=== PATIENT | female | born 1995 | race Caucasian/White ===

== ENCOUNTER 2016-08-04 16:57 | Emergency (ER) | payer MEDICAID, OTHER ==
[~2016-08-04] VITALS: Ht 162.6 cm; Wt 72.5 kg
[2016-08-04 17:00] VITALS: Ht 162.6 cm; Wt 72.5 kg
[2016-08-04] MEDS ORDERED: ACET325T33 PO (17:18)
--- NOTE | 2016-08-04 17:18 | ERD ---
ER Documentation Chief Complaint Date/Time DATE: 08/04/16 TIME: 17:13 Chief Complaint HEADACHE,DIZZINESS,FEVER,SORE THROAT X 3DAYS HPI This pleasant 20-year-old female presents to emergency department today with 4 day history of headache, cough, nasal congestion, intermittent dizziness, sore throat and fever. Patient has not tried any [id number] medication for symptomatic relief, states that she might be . Patient denies any previous , para 0, 0. She is in room with her boyfriend. She denies dysuria, vaginal discharge, fever, shortness of breath, nausea, or vomiting. ROS All systems reviewed and are negative except as per history of present illness. Medications Home Meds Active Scripts Acetaminophen* (Tylenol*) 325 Mg Tablet, 2 TAB PO Q6 Y for PAIN AND OR ELEVATED TEMP, #20 TAB Prov:KANIKA,SHANNAN 08/04/16 Allergies Allergies: Coded Allergies: No Known Allergy (Unverified , 08/04/16) PMhx/Soc Medical and Surgical Hx: pt denies Medical Hx, pt denies Surgical Hx Hx Alcohol Use: No Hx Substance Use: No Hx Tobacco Use: No Smoking Status: Never smoker Physical Exam Vitals Vital Signs Date Time Temp Pulse Resp B/P Pulse Ox O2 Delivery O2 Flow Rate FiO2 08/04/16 17:00 99.4 84 18 125/69 98 Vitals stable, triage notes reviewed Physical Exam Const: No acute distress Head: Atraumatic Eyes: Normal Conjunctiva, PERRLA, EOMI ENT: Tympanic membranes bilaterally translucent, positive light reflex auditory canals are clear, nasal mucosa edematous right turbinates 3+ touching. Mucus noted. No maxillary sinus or frontal sinus tenderness. Pharynx is pink , injected, tongue is midline, tonsils not visualized, uvula rises and falls with pronation Neck: Full range of motion..~ No meningismus. No cervical chain nodes palpable Resp: Chest rises and falls symmetrically, clear to auscultation bilaterally, no rales wheezes or rhonchi Cardio: Regular rate and rhythm, no murmurs Abd: Soft, non tender, non distended. Normal bowel sounds Skin: No petechiae or rashes Back: Ext: Neur: Awake and alert Psych: Normal Mood and Affect Results 24 hrs Laboratory Tests Test 08/04/16 17:20 Bedside Urine pH (LAB) 7.0 Bedside Urine Protein (LAB) Negative Bedside Urine Glucose (UA) Negative Bedside Urine Ketones (LAB) Negative Bedside Urine Blood Negative Bedside Urine Nitrite (LAB) Negative Bedside Urine Leukocyte Esterase (L Trace Procedures/MDM This 20-year-old female presents to emergency department today with cold symptoms, cough, fever, headache, intermittent dizziness, congestion, patient has not tried any aozq-qka-oktewll medication for suspicion of . Last menstrual period was June 19, 2016. U hCG positive for evidence of . Patient [id number]. Patient will be referred to gynecology, given Tylenol for her cold symptoms, instructed to drink plenty of fluids, get plenty of rest, schedule appointment with gynecology for confirmation of . I feel patient is excellent candidate for outpatient management of her upper respiratory symptoms. Patient has no complaint that requires further evaluation, denies dysuria, shortness of breath, nausea or vomiting. Urinary tract infection, asthma, pneumonia not likely, history and physical exam do not support diagnosis. symptoms not presenting at this time. I feel the patient is stable for discharge at this time. I have discussed results, examination findings, the treatment plan with the patient and family present prior to discharge. Indications for emergent reevaluation, side effects of medication were also discussed. All questions were answered. Patient verbalizes understanding and agrees with plan of care. Departure Diagnosis: Primary Impression: URI, acute Condition: Stable Patient Instructions: Adult Self-Care for Colds Additional Instructions: Thank you for for coming to [facility] for your care today. Please ask your nurse or provider if you have questions about your care today and do not leave until all your questions have been answered. Please use any medications given as directed and follow-up with your doctor (or the doctor you were referred to) in the next 2-3 days. If you do not have a primary care doctor you may follow up at the [facility] (listed below). You may also use motrin and tylenol as needed for fever and/or pain unless instructed otherwise by your provider or nurse. Indications for more urgent follow-up have been discussed, but you may return to the Emergency Department at ANY time for any worrisome or worsening symptoms. If you have abdominal pain, please know that no test or exam you received is perfect and you should follow up within 8 hours for continued pain. If you had any imaging studies today, such as an X-Ray or CT Scan, these studies will be reviewed later by a radiologist. You will be called if there are important findings that were not identified today, so make sure the contact information you provided at registration is correct. If you received any narcotic pain control medicine today, such as Vicodin, Morphine or Dilaudid, your coordination and judgment may be affected for a number of hours. Please do not drive or operate heavy machinery, and you may want someone to assist you at home. If you were given a prescription for narcotic medication, be aware that it is very addictive- use sparingly and only if necessary. SHANNAN BOUDREAUX Aug 04, 2016 17:17 SHANNAN BOUDREAUX Aug 04, 2016 17:17
[2016-08-04 17:20] LABS: URINE BLOOD (Dip) POC Negative (NEGATIVE)
== END 2016-08-04 18:00 | disposition home or self-care (01) ==
LOC: FTE 16:57
DX: J06.9 Acute upper respiratory infection, unspecified (principal); Z33.1 Pregnant state, incidental
CPT/HCPCS: 81003; 99283

== ENCOUNTER 2016-10-09 08:57 | Emergency (ER) | payer MEDICAID ==
[~2016-10-09] VITALS: Ht 160 cm; Wt 71.0 kg
[~2016-10-09 08:57] MED LIST: ACET325T33 PO
[2016-10-09 09:01] VITALS: Ht 160 cm; Wt 71.0 kg
--- NOTE | 2016-10-09 11:40 | ERD ---
ER Documentation Chief Complaint Date/Time DATE: 10/09/16 TIME: 11:35 Chief Complaint BIB SELF C/O PALPITATIONS X 2 WEEKS. 4 MONTHS . DENIES CHEST PAIN HPI 20-year-old female who is approximately 4 months is complaining of on- and-off palpitations 10 days. Previously that she feels her heart was beating very fast at times. The palpitation usually onset at rest, lasting from seconds to minutes. She has 6 episodes yesterday. She does not have any palpitations right now. Patient stated that she drinks plenty of water. Denies chest pain or shortness of breath. Denies pelvic pain. Denies vaginal bleeding. ROS All systems reviewed and are negative except as per history of present illness. Medications Home Meds Active Scripts Acetaminophen* (Tylenol*) 325 Mg Tablet, 2 TAB PO Q6 Y for PAIN AND OR ELEVATED TEMP, #20 TAB Prov:KANIKA,SHANNAN 08/04/16 Allergies Allergies: Coded Allergies: No Known Allergy (Unverified , 08/04/16) PMhx/Soc Medical and Surgical Hx: pt denies Medical Hx, pt denies Surgical Hx History of Surgery: No Anesthesia Reaction: No Hx Neurological Disorder: No Hx Respiratory Disorders: No Hx Cardiac Disorders: No Hx Psychiatric Problems: No Hx Miscellaneous Medical Probl: No Hx Alcohol Use: No Hx Substance Use: No Hx Tobacco Use: No Smoking Status: Never smoker Physical Exam Vitals Vital Signs Date Time Temp Pulse Resp B/P Pulse Ox O2 Delivery O2 Flow Rate FiO2 10/09/16 09:01 98.3 99 18 117/63 97 Physical Exam General: Well-developed, well-nourished, conscious and coherent, in no distress Skin: Warm and dry without rash, good texture and turgor Head: Normocephalic without evidence of trauma Eyes: Sclera and conjunctivae normal; pupils equal, round, and reactive to light; extraocular movements are intact Neck: Supple without meningismus or adenopathy. Carotids are equal. Trachea midline. No bruits or JVD Chest: Normal AP diameter. Good expansion without retractions. Nontender. Lungs are clear to auscultate bilaterally with good tidal volume Heart: Regular rate and rhythm. No murmur, rub, or gallops heard Abdomen: Soft and nontender without masses, guarding, or rebound. Bowel sounds are active. No hepatosplenomegaly Back: Without spinal or CVA tenderness Pelvis: Nontender to palpation and stable to compression Extremities: Full range of motion. Good strength bilaterally. No clubbing, cyanosis, or edema. Peripheral pulses are intact. Sensation intact Neuro: Alert and oriented 4, GCS 15. Cranial nerves grossly intact. Motor and sensory exams nonfocal. Moves all extremities. Speech clear. Gait normal Procedures/MDM Well-appearing 20-year-old female who was 4 month presented to ED with on and off palpitations. EKG: Normal sinus rhythm, rate 84, slight right axis. No ST segment elevation or depression. No ectopic beats. No QT prolongation. No other EKG abnormalities. EKG read by Dr. Gomez. Patient does not have any palpitation at this time, her EKG is normal, no chest pain. I doubt MA, aortic dissection, pneumothorax, PE, or pneumonia. Patient is not having pelvic pain or vaginal bleeding, I doubt threatened . Patient could benefit outpatient Holter monitoring. Patient advised to follow- up with her PCP for cardiology referral. Patient appears well, stable for discharge and outpatient management. Medical decision making shared with patient and family. Education provided to patient and family. Patient and family expressed understanding of the plan. Medications on discharge: None. Follow-up: Primary care provider in 2-3 days or return to ED if worse. Departure Diagnosis: Primary Impression: Palpitations Condition: Stable Patient Instructions: Palpitations Referrals: SENIOR MECHANICAL DESIGN ENGINEER [place] [id number] [facility] [address] [place], [place] [id number] OFFICE FAX SENAIT FLOYD [address] [place] [place] [id number] KAT GL[place] [address] [address] [place] [phone] [facility] [address] [facility], [address] [address] [address] [address] [place], [place] [phone] [facility] [address] [place], [place] [phone] [facility] [id number] - [address] SALGADO, GRANT [address], [facility] [address] [address] NIX, LEELEE [address] [facility]. [address], [facility] [address] [address] ANDRE, FAR[place] [address] [place], [place] [phone] [facility] () Usted se burr hecho un examen mdico de control que le indica que no est en giles condicin que requiera tratamiento urgente en el Departamento de Emergencia. Un estudio ms profundo y el tratamiento de calvillo condicin pueden esperar sin ningn riesgo hasta que usted sea atendida/o en el consultorio de calvillo mdico o giles cl jolynn. Es responsabilidad suya arreglar giles jose para el seguimiento del lucille. MANEJO DE CONDICIONES NO URGENTES EN EL FUTURO 1) Si usted tiene un mdico de atencin primaria: Usted debera llamar a calvillo mdico de atencin primaria antes de venir al departamento de emergencia. Despus de las horas de consultorio, calvillo doctor o calvillo asociado/a est disponible por telfono. El mdico o enfermero de jahaira en el servicio telefnico puede asesorarle por michael medio para atender el problema, o lucille contrario se puede programar giles jose. 2) Si usted no tiene un mdico de atencin primaria: Llame al mdico o clnica de referencia que aparece abajo rosanne las horas de consultorio para hacer giles jose para que le vean. CLINICAS: [facility] [phone] [facility] [phone] [facility] [phone] [facility] 009 [phone] [facility] [phone] [address] [facility]. [phone] [address] Additional Instructions: Llame al doctor MAANA y ibis giles JOSE PARA DENTRO DE 2-3 CHRISTIAN.Dgale a la secretaria que nosotros le instruimos hacer esta jose.Avise o llame si calvillo condicin se empeora antes de la jose. Regresa aqui si peor o no mejor. Ask your primary provider for Holter monitoring and a referral to a medical dosimetrist. CADE TIAN NP Oct 09, 2016 11:40
== END 2016-10-09 11:16 | disposition home or self-care (01) ==
LOC: FTE 08:57
DX: O99.89 Other specified diseases and conditions complicating pregnancy, childbirth and the puerperium (principal); R00.2 Palpitations; Z3A.00 Weeks of gestation of pregnancy not specified
CPT/HCPCS: 93005; Z7502

== ENCOUNTER 2017-02-28 14:09 | Outpatient (CLI) | payer MEDICAID, OTHER ==
[~2017-02-28] VITALS: Ht 160 cm; Wt 80.9 kg
[2017-02-28 14:17] VITALS: Ht 160 cm; Wt 80.9 kg
[2017-02-28 14:18] VITALS: BP 104/55
--- NOTE | 2017-02-28 15:35 | RADRPT ---
PROCEDURE: US biophysical profile. CLINICAL INDICATION: Decreased motion. TECHNIQUE: Multiple sonographic images of the uterus were obtained. The images were revi ewed on a PACS workstation. COMPARISON: No prior studies are available for comparison. FINDINGS: There is a single live intrauterine gestation. heart rate is 166 beats per minute. The position is cephalic. The placenta is fundal grade II with no abruption or previa. The EDVIN is 11.4 cm. (Normal = 5-20 cm.) Breathing Movement: 2 Gross Body Movement: 2 Tone: 2 Qualitative Amniotic Fluid Volume: 2 TOTAL: 8 IMPRESSION: 1. The biophysical score is 8/8. RPTAT: QQ .Dewayne Lees MD, MD Date Time Electronically viewed and signed by .Dewayne Lees MD, on 02/28/2017 15:35 .R/
[2017-02-28] MEDS ORDERED: PREN1TAB79 PO (16:45)
--- NOTE | 2017-02-28 17:00 | CONS ---
Date/Time of Note Date/Time of Note DATE: 02/28/17 TIME: 16:53 Consultation Date/Type/Reason Admit Date/Time . February 28, 2017 OB triage consult. This patient is a 21 years old 1 para 0 with estimated date of confinement of March 31, 2017 which makes her 35 weeks and 4 days today. She came to triage complaining of an episode of vaginal bleeding around noontime. otherwise her course apparently so for was uncomplicated. On examination ;she is a well-developed well-nourished 35-36 weeks. abdomen is soft, she does not have regular contractions, baby appears to be in vertex presentation,no CVA tenderness, no abdominal tenderness. On a gentle pelvic examination; cervix was closed, thick and high with intact membrane. In reality I did not see any evidence of a blood, however the pad that patient was wearing did show some dark spots. .Her general vital signs are normal; with blood pressure of 110/63 pulse rate of 87 respiration of 17 and temperature of 93.6. Constitutional: No chills, No diaphoresis, No disoriented, No febrile, No improved, No no complaints, No other, No poor po, No requiring IVF, No requiring O2 Eyes: No discharge, No no complaints, No other, No pain, No redness, No visual change ENT: No bleeding, No congestion, No discharge, No dysphagia, No no complaints, No other, No pain, No sore throat Respiratory: No cough, No no complaints, No other, No pain, No pleuritic pain, No shortness of breath, No sputum, No wheezing Cardiovascular: No chest pain, No edema, No lightheadedness, No no complaints, No orthopenea, No other, No palpitations, No paroxysmal nocturnal dyspnea Gastrointestinal: No blood, No constipation, No decreased appetite, No diarrhea , No flatus, No nausea, No no complaints, No other, No pain, No passing stool, No vomiting Genitourinary: other (On pelvic examination as I mentioned the cervix was closed thick and hollowing), No bleeding, No discharge, No dysuria, No flank pain, No hematuria, No no complaints Musculoskeletal: No back pain, No bone/joint pain, No neck pain, No no complaints, No other, No restricted range of motion, No swelling Skin: No bruising, No erythema, No laceration, No no complaints, No other, No pruritis, No rash, No skin lesions Neurologic: No confusion, No dizziness, No focal-weakness, No headache, No no complaints, No other, No seizure, No syncope Endocrine: No dry skin, No no complaints, No other, No polydypsia, No polyuria , No temp intolerance Additional Comments On ultrasound study report was a single live intrauterine gestation with heart rate of 166 bpm, cephalic presentation placenta was fundal grade 2, no evidence of abruption or previa. her amniotic fluid index was reported 11.4 cm. The biophysical profile was 8/8. Due to lack of contractions or any evidence of bleeding at this time she was discharged home with instruction to rest at home and to avoid intercourse for a few days. sIn case of heavy vaginal bleeding ,contractions or rupture of the membrane immediately return to triage Social History Smoking Status: Never smoker Exam/Review of Systems Vital Signs Vitals Vital Signs Date Time Temp Pulse Resp B/P Pulse Ox O2 Delivery O2 Flow Rate FiO2 02/28/17 14:18 97.6 104/55 Room Air CONCEPCION BRUNSON MD Feb 28, 2017 17:00
== END 2017-02-28 17:00 | disposition home or self-care (01) ==
LOC: OBT 14:09 → L-D 14:09 → OBT 17:00
PROVIDERS: ATTEND Obstetrics & Gynecology
DX: O46.8X3 Other antepartum hemorrhage, third trimester (principal); Z3A.35 35 weeks gestation of pregnancy
CPT/HCPCS: 76818; Z7500; G0463